=== PATIENT | male | born 1960 | race Caucasian/White ===

== ENCOUNTER → 2025-02-19 | Outpatient (CLI) | payer OTHER ==
--- NOTE | 2025-02-20 09:55 | HMCIMG ---
EXAM: CT Cardiac calcium scoring. CLINICAL HISTORY: CAD screening. TECHNIQUE: Thin collimated axial CT cardiac images were obtained. A CT scan is done according to ALARA (As Low As Reasonably Achievable). CONTRAST: None. COMPARISON: None provided. FINDINGS: Calcium Score: VESSEL Number of lesions Volume mm3 Equi. Mass/mg Calcium score LM 1 37.9 --.-- 60.4 LAD 3 89.5 --.-- 123.3 LCX 0 0.0 0.00 0.0 RCA 1 0.0 --.-- 0.4 Total 05 127.4 --.-- 184.0 IMPRESSION: The calcium score is 184.05. This places the patient at the 73rd percentile. /[place]
== END | disposition home or self-care (01) ==
LOC: RAH 11:05
PROVIDERS: ATTEND Orthopaedic Surgery
DX: Z13.6 Encounter for screening for cardiovascular disorders (principal)
CPT/HCPCS: 75571